=== PATIENT | female | born 1975 | race Caucasian/White ===

== ENCOUNTER 2020-12-03 15:26 | Emergency (ER) | payer BC ==
[2020-12-03] MEDS ORDERED: Ketorolac 30 MG/ML SDV IM ONE (17:49)
--- NOTE | 2020-12-03 17:51 | EDM.PDOC ---
ED HPI GENERAL MEDICAL PROBLEM - General Chief Complaint: Lower Extremity Injury/Pain Stated Complaint: POS BROKEN RT ANKLE Time Seen by Provider: 12/03/20 17:48 Source of Information: Reports: Patient, RN Notes Reviewed History Limitations: Reports: No Limitations - History of Present Illness INITIAL COMMENTS - FREE TEXT/NARRATIVE: 45-year-old female presents emergency department day complaint of right ankle pain, she injured herself when she tripped on a garden hose had an inversion of her ankle now she cannot bear weight. Does have a little bit of swelling over the lateral malleolus Left Ankle Pain Score (Numeric/FACES): 8 - Related Data Allergies Allergy/AdvReac Type Severity Reaction Status Date / Time gold Au 198 Allergy Rash Verified 12/03/20 18:07 Past Medical History - Past Health History Medical/Surgical History: Denies Medical/Surgical History Social & Family History - Tobacco Use Tobacco Use Status *Q: Never Tobacco User Review of Systems - Review of Systems Review Of Systems: See Below Constitutional: Reports: No Symptoms Musculoskeletal: Reports: Joint Pain (Ankle pain) ED EXAM, GENERAL - Physical Exam Exam: See Below Free Text/Narrative:: Examination of the ankle I do appreciate some bruising at the lateral malleolus is a little bit of edema as well pedal pulses +2 there is some tenderness to both a drawer test and a tilt test of the mortise of the ankle. Sensation is intact Exam Limited By: No Limitations General Appearance: Alert, WD/WN, No Apparent Distress Course - Vital Signs Last Recorded V/S: Last Vital Signs Temp 97.7 F 12/03/20 17:48 Pulse 84 12/03/20 17:48 Resp 18 12/03/20 17:48 BP 153/69 H 12/03/20 17:48 Pulse Ox - Orders/Labs/Meds Orders: Active Orders 24 hr Category Date Time Status Ankle Min 3V Rt [CR] Stat Exams 12/03/20 17:49 Taken DME for Discharge [COMM] Urgent Oth 12/03/20 18:20 Ordered Meds: Medications Discontinued Medications Generic Name Dose Route Start Last Admin Trade Name Freq PRN Reason Stop Dose Admin Ketorolac Tromethamine 30 mg 12/03/20 17:49 Ketorolac 30 Mg/Ml Sdv IM 12/03/20 17:50 ONETIME ONE Departure - Departure Time of Disposition: 18:21 Disposition: Home, Self-Care 01 Condition: Fair Clinical Impression: Right ankle sprain Qualifiers: Encounter type: initial encounter Involved ligament of ankle: unspecified liga ment Qualified Code(s): S93.401A - Sprain of unspecified ligament of right ankle, initial encounter - Discharge Information Instructions: Ankle Sprain Referrals: PCP,None [Primary Care Provider] - Forms: ED Department Discharge Additional Instructions: Continue to use the right ankle sprain and crutches as needed, follow-up primary care upon return home use Tylenol or Motrin as needed for pain control, follow- up the emergency department with worsening of symptoms Sepsis Event Note (ED) - Focused Exam Vital Signs: Vital Signs Temp Pulse Resp BP 12/03/20 17:48 97.7 F 84 18 153/69 H - My Orders Last 24 Hours: My Active Orders 12/03/20 17:49 Ankle Min 3V Rt [CR] Stat 12/03/20 18:20 DME for Discharge [COMM] Urgent - Assessment/Plan Last 24 Hours: My Active Orders 12/03/20 17:49 Ankle Min 3V Rt [CR] Stat 12/03/20 18:20 DME for Discharge [COMM] Urgent Plan: Assessment Acuity = acute Site and laterality = right ankle sprain Etiology = inversion injury Manifestations = none Location of injury = Home Lab values = ankle x-ray I did review films myself I cannot appreciate any acute process, the official read from radiology is pending Plan She is placed in an air gel splint will use Tylenol Motrin as needed for pain control rest ice and elevation follow-up primary care upon return This note was dictated using [employer] voice recognition software please call with any questions on syntax or grammar.
--- NOTE | 2020-12-05 09:54 | CR ---
Ankle Min 3V Rt CLINICAL HISTORY: Injury FINDINGS: The soft tissues are swollen over the lateral malleolus. No acute fracture or dislocation is noted. Ankle mortise is intact. There are some stippled blastic densities in the tibia fibula and carpal bones. 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 Impression: No fracture or dislocation
== END 2020-12-03 18:51 | disposition home or self-care (01) ==
LOC: JP.ED 15:26
DX: S93.401A Sprain of unspecified ligament of right ankle, initial encounter (principal); Z91.048 Other nonmedicinal substance allergy status; X50.1XXA Overexertion from prolonged static or awkward postures, initial encounter
CPT/HCPCS: 73610; 96372; 99283; J1885